=== PATIENT | female | born 1960 | race Caucasian/White ===

== ENCOUNTER 2019-11-23 00:23 | Outpatient (CLI) | payer OTHER, SELFPAY ==
[2019-11-23 15:54] LABS: SARS-CoV-2 RNA PCR Negative
== END 2019-11-23 00:24 | disposition home or self-care (01) ==
LOC: ANHCOVIDDT 00:23
PROVIDERS: PCP Family Medicine; Visit Provider Internal Medicine Gastroenterology
DX: Z01.818 Encounter for other preprocedural examination (principal); Z11.59 Encounter for screening for other viral diseases
CPT/HCPCS: 87635; C9803; U0003

== ENCOUNTER 2019-11-26 04:17 | Day surgery (SDC) | payer OTHER, SELFPAY ==
[2019-11-22 14:59] VITALS: BMI 29.1
[2019-11-26 07:08] VITALS: BP 133/72; PULSE 54; RESP 18; TEMP 36.4; O2SAT 100
[2019-11-26] MEDS: LACTATED RINGERS 1,000 ML 150 ML IV CONT (07:16)
--- NOTE | 2019-11-26 08:11 | WPDANESEPPF ---
Anes - Initial Pre Proc Eval Procedure: Operation Date: 11/26/19 08:30 Proposed Procedures p Esophagogastroduodenoscopy - Jak Gu MD Date/Time: 11/26/19 08:11 Surgeon: Jak Gu MD Pre Op Diagnosis: dysphagia, GERD Patient Data Age: 59 Gender: F Height: 5 ft 1 in Weight: 69.5 kg Last Vital Signs Temp 97.5 F L 11/26/19 07:08 Pulse 54 L 11/26/19 07:08 Resp 18 11/26/19 07:08 BP 133/72 11/26/19 07:08 Pulse Ox 100 11/26/19 07:08 Allergies Allergy/AdvReac Type Severity Reaction Status Date / Time dexlansoprazole Allergy Intermediate Rash Verified 11/26/19 07:12 [From Dexilant] codeine Allergy Unknown Nausea Verified 11/26/19 07:05 hydromorphone Allergy Unknown Hypothermia Verified 11/26/19 07:05 Home Medications Medication Instructions Recorded Confirmed Type albuterol sulfate 90 mcg/actuation 2 puff INHALATION Q4H PRN #8.5 gm 05/02/19 11/22/19 Rx aerosol inhaler fluticasone fur. 100 mcg-umeclid 1 inhalation INHALATION PRN PRN 05/02/19 11/22/19 History 62.5 mcg-vilant 25 mcg inhalat.powder tobramycin 0.3 % eye drops 1 drop EACH EYE Q4H PRN 05/02/19 11/22/19 History metoprolol succinate 50 mg 50 mg PO DAILY #90 tablet 06/05/19 11/22/19 Rx tablet,extended release 24 hr atorvastatin 10 mg tablet 10 mg PO DAILY 07/25/19 11/22/19 History diazepam 5 mg tablet 5 mg PO . q.h.s. tablet 07/25/19 11/22/19 History gabapentin enacarbil 300 mg 300 mg PO . q.h.s. tablet 07/25/19 11/22/19 History tablet,extended release hydroxychloroquine 200 mg tablet 200 mg PO BID tablet 07/25/19 11/22/19 History hydroxyzine HCl 25 mg tablet 25 mg PO . q.h.s. tablet 07/25/19 11/22/19 History melatonin 10 mg tablet 20 mg PO . q.h.s. tablet 07/25/19 11/22/19 History mycophenolate mofetil 500 mg tablet 1,000 mg PO .COMPLEX 07/25/19 11/22/19 History pantoprazole 40 mg tablet,delayed 40 mg PO QAM #90 tablet 07/25/19 11/22/19 Rx release prednisone 5 mg tablet 5 mg PO DAILY #90 tablet 07/25/19 11/22/19 Rx valacyclovir 1 gram tablet 1 mg PO PRN PRN 07/25/19 11/22/19 History levothyroxine 75 mcg tablet 75 mcg PO DAILY #90 tablet 11/13/19 11/22/19 Rx calcium carbonate [Calcium 600] 600 mg PO BID 11/22/19 11/22/19 History cyanocobalamin (vitamin B-12) 1,000 mcg PO DAILY 11/22/19 11/22/19 History [Vitamin B-12] venlafaxine 37.5 mg 37.5 mg PO DAILY #30 cap 11/24/19 Rx capsule,extended release 24 hr Patient hx anesthesia problems: none Family hx anesthesia problems: none PMFSH Past Medical History Medical History (Updated 11/26/19 @ 08:11 by Saad Rudd MD) Bronchitis Essential (primary) hypertension Hypothyroidism, unspecified Mixed hyperlipidemia Osteoarthritis involving multiple joints on both sides of body Systemic lupus erythematosus with organ system involvement Family History Family History (Updated 09/15/18 @ 11:06 by DOCTOR UNKNOWN) Mother Diabetes mellitus Family history of rheumatoid arthritis Patient's mother is in good health Father Hypertension Patient's father is in good health Family history of cardiac disorder Social History Social History Smoking status: Never smoker Alcohol intake: never Anes - Eval Final PreProcedure Day of Procedure 11/26/19 08:11 Patient weight: overweight Heart: regular rate and rhythm Lungs: clear to auscultation Airway: Mallampati scale class II Neurological: alert and oriented Last oral intake: >/= 8 hours ASA classification: III Emergent: no Anesthetic plan: proceed Anesthesia type and monitoring: general GIVS and standard monitoring Informed Consent: The patient's anesthetic plan and its attendant risks and benefits were discussed with the patient/family/POA. Questions were solicited and answers provided to the satisfaction of the patient/family/POA.
--- NOTE | 2019-11-26 08:23 | WPDGICN ---
Assessment and Plan Assessment and plan (1) GERD (gastroesophageal reflux disease): Code(s): K21.9 - Gastro-esophageal reflux disease without esophagitis Status: Acute Assessment and Plan: Recurrent symptoms of epigastric pain, dysphagia. Plan is for EGD to evaluate more thoroughly. Currently poorly responsive to her ongoing medications of pantoprazole. A trial of Dexilant 60 mg p.o. daily will be tried in the interim. Further recommendations may be given after endoscopy. (2) Epigastric abdominal pain: Code(s): R10.13 - Epigastric pain Status: Acute (3) Dysphagia: Code(s): R13.10 - Dysphagia, unspecified Status: Acute GI Consult Note Consult date/time: 11/26/19 08:23 HPI: Mendez Randolph is a 59 year old female Seen in evaluation at the request of Dr. Wilver Davis. Patient has a long history of acid reflux. . Patient previously on pantoprazole 40 mg p.o. b.i.d. with good response. Over last several months has increasing burning in belching. She feels a lump in her throat. Difficulty swallowing and epigastric pain. In the past has had endoscopy revealing distal esophageal web-like stricture requiring dilatation. Family history is noncontributory. Patient denies any bleeding or weight loss. Review of Systems Review of Systems: All systems reviewed & are unremarkable except as noted in HPI and below PMFSH Past Medical History Medical History Bronchitis Essential (primary) hypertension Hypothyroidism, unspecified Mixed hyperlipidemia Osteoarthritis involving multiple joints on both sides of body Systemic lupus erythematosus with organ system involvement Family History Family History Mother Diabetes mellitus Family history of rheumatoid arthritis Patient's mother is in good health Father Hypertension Patient's father is in good health Family history of cardiac disorder Social History Social History Smoking status: Never smoker Alcohol intake: never Meds Home Medications and Allergies Home Medications Medication Instructions Recorded Confirmed Type albuterol sulfate 90 mcg/actuation 2 puff INHALATION Q4H PRN #8.5 gm 05/02/19 11/22/19 Rx aerosol inhaler fluticasone fur. 100 mcg-umeclid 1 inhalation INHALATION PRN PRN 05/02/19 11/22/19 History 62.5 mcg-vilant 25 mcg inhalat.powder tobramycin 0.3 % eye drops 1 drop EACH EYE Q4H PRN 05/02/19 11/22/19 History metoprolol succinate 50 mg 50 mg PO DAILY #90 tablet 06/05/19 11/22/19 Rx tablet,extended release 24 hr atorvastatin 10 mg tablet 10 mg PO DAILY 07/25/19 11/22/19 History diazepam 5 mg tablet 5 mg PO . q.h.s. tablet 07/25/19 11/22/19 History gabapentin enacarbil 300 mg 300 mg PO . q.h.s. tablet 07/25/19 11/22/19 History tablet,extended release hydroxychloroquine 200 mg tablet 200 mg PO BID tablet 07/25/19 11/22/19 History hydroxyzine HCl 25 mg tablet 25 mg PO . q.h.s. tablet 07/25/19 11/22/19 History melatonin 10 mg tablet 20 mg PO . q.h.s. tablet 07/25/19 11/22/19 History mycophenolate mofetil 500 mg tablet 1,000 mg PO .COMPLEX 07/25/19 11/22/19 History pantoprazole 40 mg tablet,delayed 40 mg PO QAM #90 tablet 07/25/19 11/22/19 Rx release prednisone 5 mg tablet 5 mg PO DAILY #90 tablet 07/25/19 11/22/19 Rx valacyclovir 1 gram tablet 1 mg PO PRN PRN 07/25/19 11/22/19 History levothyroxine 75 mcg tablet 75 mcg PO DAILY #90 tablet 11/13/19 11/22/19 Rx calcium carbonate [Calcium 600] 600 mg PO BID 11/22/19 11/22/19 History cyanocobalamin (vitamin B-12) 1,000 mcg PO DAILY 11/22/19 11/22/19 History [Vitamin B-12] venlafaxine 37.5 mg 37.5 mg PO DAILY #30 cap 11/24/19 Rx capsule,extended release 24 hr Allergies Allergy/AdvReac Type Severity Reaction Status Date / Time dexlansoprazole Allergy Intermediate
[2019-11-26] MEDS: BENZOCAINE (*SP) 60 ML SPRAY CAN (HURRICAINE) 1 SPRAY MUCOUS MEM (08:33)
[2019-11-26 08:44] VITALS: BP 105/67; PULSE 55; RESP 17; O2SAT 99
[2019-11-26 08:54] VITALS: BP 107/67; PULSE 53; RESP 15; O2SAT 98
[2019-11-26 09:04] VITALS: BP 125/78; PULSE 56; RESP 14; O2SAT 100
== END 2019-11-26 09:26 | disposition home or self-care (01) ==
PROVIDERS: PCP Family Medicine; Visit Provider Internal Medicine Gastroenterology
PROC: 0DJ08ZZ Inspection of Upper Intestinal Tract, Via Natural or Artificial Opening Endoscopic (ICD-10-PCS; CPT 43235; principal; 2019-11-26 08:30)
DX: K21.9 Gastro-esophageal reflux disease without esophagitis (principal); R13.10 Dysphagia, unspecified; I10 Essential (primary) hypertension; E78.2 Mixed hyperlipidemia; M32.10 Systemic lupus erythematosus, organ or system involvement unspecified; M19.90 Unspecified osteoarthritis, unspecified site
CPT/HCPCS: 43450; 43235; J2704; J7120

== ENCOUNTER → 2020-03-27 16:30 | Outpatient (CLI) | payer OTHER, SELFPAY ==
--- NOTE | ~2020-03-27 | XR_ITS ---
EXAMINATION: XR chest 2V EXAM DATE: 03/27/2020 16:43 INDICATION: COVID 19. Cough. Shortness of breath. TECHNIQUE: Frontal and lateral projections of the chest obtained and reviewed. There is no prior tiffany dy for comparison. FINDINGS: Minimal left midlung zone opacity, could be atelectasis or acute infectious process. The l ungs are otherwise clear. There are no pleural effusions. The cardiomediastinal silhouette is withi n normal limits. There is no pneumothorax suspected. The bones and soft tissues are unremarkable. IMPRESSION: Minimal left midlung zone atelectasis or infection. Reviewed, dictated and finalized at location G.
== END ==
PROVIDERS: PCP Family Medicine; Visit Provider Family Medicine
DX: U07.1 COVID-19 (principal)
CPT/HCPCS: 71046

== ENCOUNTER → 2021-02-12 09:52 | Outpatient (CLI) | payer OTHER, SELFPAY ==
--- NOTE | ~2021-02-12 | CT_ITS ---
EXAMINATION:CT diagnostic chest wo con DATE: 02/12/2021 10:16 INDICATION: Shortness of breath. TECHNIQUE: Computed tomography (CT) of the chest was performed without intravenous contrast. Automate d exposure control and iterative reconstruction technique were employed. The dose-length product (DLP ) was 160.82 mGy-cm. COMPARISON: Chest CT 12/04/2018 FINDINGS: The lungs demonstrate mild atelectasis. There are two 3 mm nodules in right upper lobe, lik ton benign. A calcified right lung nodule and calcified right hilar and mediastinal lymph nodes are c onsistent with old granulomatous disease. No bronchiectasis or honeycombing. No pleural effusion. The heart size is normal. There are coronary artery calcifications. No pericardial effusion. There is a small sliding hiatal hernia. Calcifications in the spleen are consistent with old granulomatous disea se. There is a 2 mm stone in right kidney. There is moderate thoracic spondylosis. IMPRESSION: 1. No specific etiology for the patient's symptoms. 2. Small sliding hiatal hernia. Reviewed, dictated and finalized at location A.
== END ==
PROVIDERS: PCP Family Medicine
DX: R06.02 Shortness of breath (principal); K44.9 Diaphragmatic hernia without obstruction or gangrene
CPT/HCPCS: 71250

== ENCOUNTER 2021-05-19 08:24 | Outpatient (CLI) | payer OTHER, SELFPAY ==
--- NOTE | 2021-05-19 08:38 | ECHO_ITS ---
Patient Info Name: Mendez Randolph Age: 60 years : 1960 Gender: Female Ht: 62 in Wt: 150 lbs BSA: 1.74 m2 HR: 69 bpm BP: 130 / 82 mmHg Technical Quality: Good Exam Date: 05/19/2021 8:42 AM Exam Location: [facility] Patient Status: Outpatient Admit Date: 05/19/2021 Staff Ordering Physician: Wilver Davis MD Diesel Crane Operator: KIAN Attending Provider: Wilver Davis MD Referring Physician: Susan FAY; Exam Type: CA echo doppler color flow Study Info Indications I34.0 - Nonrheumatic mitral (valve) insufficiency Complete two-dimensional, color flow and Doppler transthoracic echocardiogram is performed. Summary 1. Complete two-dimensional, color flow and Doppler transthoracic echocardiogram is performed. 2. Left ventricular chamber dimension is normal. 3. Left ventricular systolic function is normal, estimated at 60-65%. 4. The left ventricular diastolic function is grade I diastolic dysfunction. 5. E/e' 15 is elevated. 6. Global longitudinal strain is normal at -19.4%. 7. Left atrial chamber dimension is mildly enlarged. 8. There is mild to moderate mitral valve regurgitation. 9. No pulmonary hypertension, estimated pulmonary arterial systolic pressure is 12 mmHg. Left Ventricle E/e' 15 is elevated. Global longitudinal strain is normal at -19.4%. Left ventricular chamber dimension is normal. Left ventricular systolic function is normal, estimated at 60-65%. The left ventricular diastolic function is grade I diastolic dysfunction. Right Ventricle Right ventricular chamber dimension is normal. Right ventricular systolic function is normal. Left Atria Left atrial chamber dimension is mildly enlarged. Right Atria Right atrial chamber dimension is normal. Aortic Valve The aortic valve is trileaflet. There is no aortic valve stenosis. There is no aortic valve regurgitation. Pulmonic Valve There is no pulmonic regurgitation. Mitral Valve There is no mitral valve stenosis. There is mild to moderate mitral valve regurgitation. Tricuspid Valve There is no tricuspid valve regurgitation. No pulmonary hypertension, estimated pulmonary arterial systolic pressure is 12 mmHg. Pericardium/Pleural There is no pericardial effusion. Inferior Vena Cava Normal inferior vena cava with >50% collapse upon inspiration consistent with normal right atrial pressure, 5 mmHg. Aorta The aortic root size at the sinus of Valsalva is normal. Left Ventricular Outflow Tract Name Value Normal LVOT 2D LVOT Diameter 1.8 cm LVOT Doppler LVOT Peak Gradient 5 mmHg LVOT Mean Gradient 2 mmHg LVOT VTI 24 cm LVOT VTI/AV VTI Ratio 0.7 LVOT Stroke Volume 62 ml LVOT CO 10.9 l/min LVOT CI 6.3 l/min/m2 Mitral Valve Name Value Normal
== END 2021-05-19 08:25 | disposition home or self-care (01) ==
LOC: ANHCARD 08:25
PROVIDERS: PCP Family Medicine; Visit Provider Family Medicine
DX: I34.0 Nonrheumatic mitral (valve) insufficiency (principal); R06.02 Shortness of breath
CPT/HCPCS: 93306

== ENCOUNTER 2022-08-22 16:35 | Emergency (ER) | payer BC, SELFPAY ==
--- NOTE | ~2022-08-22 | XR_ITS ---
EXAMINATION: XR abdomen/kub 1V DATE: 08/23/2022 00:07 INDICATION: Right flank pain. TECHNIQUE: A supine view of the abdomen on 2 radiographs was obtained. COMPARISON: CT abdomen and pelvis 08/22/2022 FINDINGS: There are no dilated loops of bowel. There is a large volume of stool in the colon. There a re phleboliths in the pelvis. There are 5 mm and 4 mm calcifications in right kidney. IMPRESSION: 1. Calcifications in right kidney, which may be parenchymal. Reviewed, dictated and finalized at location D. ARY SERIALS ASSISTANT
--- NOTE | ~2022-08-22 | CT_ITS ---
EXAMINATION: CT abdomen pelvis wo con DATE: 08/23/2022 00:16 INDICATION: Right flank pain. TECHNIQUE: Computed tomography (CT) of the abdomen and pelvis was performed without intravenous contr ast. Automated exposure control and iterative reconstruction technique were employed. The dose-length product was 255.15 mGy-cm. COMPARISON: CT abdomen and pelvis 10/30/2012 FINDINGS: The visualized portions of the lung bases demonstrate mild atelectasis. No pleural effusion . The heart size is normal. There are coronary artery calcifications. No pericardial effusion. There is a small sliding hiatal hernia. The liver and gallbladder are normal. Calcifications in the spleen are consistent with old granulomatous disease. The pancreas, adrenal glands, and left kidney are norm al. There is mild atrophy of right kidney. There are 4 mm and 5 mm calcifications in right kidney. Th ere is a large volume of stool in the colon. The appendix is normal. There are no dilated loops of kala wel. There are no pathologically enlarged lymph nodes. There is no free intraperitoneal fluid. There is moderate thoracic and lumbar spondylosis. IMPRESSION: 1. Calcifications in right kidney that may be parenchymal calcifications. 2. Small sliding hiatal hernia. Reviewed, dictated and finalized at location D. TY COMMISSIONER
[2022-08-22 16:58] VITALS: BP 124/67; PULSE 58; RESP 17; TEMP 36.5; O2SAT 100
[2022-08-22 17:33] LABS: Basophils Percent Auto 0.2 % (0.2-1.2); Eosinophils Absolute Auto 0.1 K/mm3 (0-0.3); Eosinophils Percent Auto 2.4 % (0-4.4); Hematocrit 38.2 % (37.0-47.0); Immature Granulocyte Absolute 0.01 K/mm3 (0.00-0.031); Immature Granulocyte Percent A 0.2 % (0-0.5); Lymphocytes Absolute Auto 2.33 K/mm3 (0.9-3.2); Lymphocytes Percent Auto 43.1 % (18.3-44.2); Mean Corpuscular HGB Conc 31.4 g/dl (32-36); Mean Corpuscular Hemoglobin 28.6 pg (26-34); Mean Corpuscular Volume 91.2 fl (80-100); Mean Platelet Volume 9.6 fl (7.4-10.4); Monocytes Absolute Auto 0.5 K/mm3 (0.1-0.6); Monocytes Percent Auto 9.4 % (2.6-8.5); Neutrophils Absolute Auto 2.4 K/mm3 (1.3-6.7); Neutrophils Percent Auto 44.7 % (45.5-73.1); Platelet Count Result 221 k/mm3 (150-375); Red Blood Count 4.19 M/mm3 (4.2-5.4); Red Cell Distribution Width 13.8 % (11.5-14.5); White Blood Count 5.4 K/mm3 (4.5-10.0)
[2022-08-22 17:44] LABS: Alanine Aminotransferase 25 U/L (6-35); Albumin Level 4.2 g/dL (3.5-5.1); Alkaline Phosphatase 88 U/L (38-126); Anion Gap 3 mmol/L (8-16); Aspartate Amino Transferase 31 U/L (14-36); Bilirubin,Total 0.4 mg/dL (0.2-1.3); Blood Urea Nitrogen 19 mg/dL (7-17); Carbon Dioxide 29 mmol/L (22-30); Chloride 102 mmol/L (98-107); Estimated CRCL calculation 47 ml/min; Estimated Glomerular Filt Rate 56; Glucose 95 mg/dL (65-110); Lipase 234 U/L (23-300); Potassium 4.7 mmol/L (3.4-5.0); Sodium 134 mmol/L (137-145)
[2022-08-22 18:50] VITALS: BP 130/72; PULSE 51; RESP 20; TEMP 37.1; O2SAT 99
--- NOTE | 2022-08-22 22:39 | ED.BACK ---
HPI - Back Pain/Injury General Chief Complaint: Back Pain/Injury <Haley Spence MD - Last Filed: 08/23/22 22:42> Stated Complaint: flank/back pain <Haley Spence MD - Last Filed: 08/23/22 22:42> Time Seen by Provider: 08/22/22 22:34 <Haley Spence MD - Last Filed: 08/23/22 22:42> Source: patient, RN notes reviewed and old records reviewed <Haley Spence MD - Last Filed: 08/23/22 22:42> Mode of arrival: ambulatory <Haley Spence MD - Last Filed: 08/23/22 22:42> Limitations: no limitations <Haley Spence MD - Last Filed: 08/23/22 22:42> History of Present Illness HPI Narrative: THis is a 61 year old female with history of kidney stones who presents for evaluation of right flank pain. She developed constant right flank pain on Tuesday. Her pain is nonradiating and she denies associated nausea, vomiting, fever, hematuria or dysuria. She reports this pain feels similar to prior episode of kidney stones. She rates her pain 8-10. She has been taking tylenol and tramadol for her pain. Her last dose of tramadol was 8 hours ago. <Haley Spence MD - Last Filed: 08/23/22 22:42> Related Data Home Medications: Home Medications Medication Instructions Recorded Confirmed tobramycin 0.3 % eye drops (Tobrex) 1 drop LEFT EYE Q4H PRN allergies 05/02/19 05/19/22 atorvastatin 10 mg tablet 10 mg PO DAILY 07/25/19 05/19/22 diazepam 5 mg tablet 5 mg PO . q.h.s. 07/25/19 05/19/22 hydroxychloroquine 200 mg tablet 200 mg PO BID 07/25/19 05/19/22 hydroxyzine HCl 25 mg tablet 25 mg PO . q.h.s. 07/25/19 05/19/22 melatonin 10 mg tablet 20 mg PO . q.h.s. 07/25/19 05/19/22 mycophenolate mofetil 500 mg tablet 1,000 mg PO .COMPLEX 07/25/19 05/19/22 calcium carbonate 600 mg calcium 600 mg PO BID 11/22/19 05/19/22 (1,500 mg) tablet (Calcium) cyanocobalamin (vitamin B-12) 1,000 mcg PO DAILY 11/22/19 05/19/22 1,000 mcg tablet (Vitamin B-12) celecoxib 200 mg capsule (Celebrex) 200 mg PO DAILY 05/19/22 05/19/22 estradiol 0.01% (0.1 mg/gram) 1 g vaginal 2XW 05/19/22 05/19/22 vaginal cream gabapentin enacarbil 300 mg 300 mg PO . t.i.d. 05/19/22 05/19/22 tablet,extended release (Horizant ER) <Haley Spence MD - Last Filed: 08/23/22 22:42> Allergies/Adverse Reactions: Allergies Allergy/AdvReac Type Severity Reaction Status Date / Time codeine Allergy Unknown Nausea Verified 11/26/19 07:05 hydromorphone Allergy Unknown Hypothermia Verified 11/26/19 07:05 <Haley Spence MD - Last Filed: 08/23/22 22:42> Review of Systems Constitutional: Constitutional: Denies weakness <Haley Spence MD - Last Filed: 08/23/22 22:42> Cardiovascular: Cardiovascular: Denies syncope, Denies rapid heart rate, Denies irregular heart rhythm, Denies leg edema and Denies dyspnea <Haley Spence MD - Last Filed: 08/23/22 22:42> Respiratory: Respiratory: Denies chest congestion, Denies hemoptysis, Denies excessive phlegm production and Denies dyspnea <Haley Spence MD - Last Filed: 08/23/22 22:42> Gastrointestinal: Gastrointestinal: Denies abdominal pain, Denies hematochezia, Denies diarrhea and Denies vomiting <Haley Spence MD - Last Filed: 08/23/22 22:42> Genitourinary: Genitourinary: Denies hematuria, Denies dysuria and Reports flank pain <Haley Spence MD - Last Filed: 08/23/22 22:42> Musculoskeletal: Musculoskeletal: Denies joint swelling, Denies loss of height and Denies muscle weakness <Haley Spence MD - Last Filed: 08/23/22 22:42> Neurologic: Denies syncope, Denies focal weakness and Denies weakness <Haley Spence MD - Last Filed: 08/23/22 22:42> [facility] Past Medical History Medical History: Medical History Abdominal pain Abscessed tooth Acute non-recurrent maxillary sinusitis BMI 29.0-29.9,adult Bronchitis Chronic depression Chronic seasonal allergic rhinitis COVID-19 (~
[2022-08-22] MEDS: MORPHINE SULFATE (*CRX) 4 MG/ML INJ 6 MG IV PUSH (23:49)
[2022-08-22] MEDS: ONDANSETRON INJ 4 MG/2 ML VIAL IV PUSH (23:49)
[2022-08-22] MEDS: SODIUM CHLORIDE 0.9% IV 1,000 ML 999 ML IV CONT (23:49)
[2022-08-22 23:52] VITALS: O2SAT 98
[2022-08-22 23:54] VITALS: BP 151/80; O2SAT 96
[2022-08-23] VITALS (8 sets, daily range): BP systolic 138; BP diastolic 73; PULSE 52; RESP 17; O2SAT 97–100
[2022-08-23 00:15] LABS: Appearance Urine Cloudy (Clear); Bacteria Urine None Seen /hpf; Bilirubin Urine Negative (Negative); Blood Urine Negative (Negative); Color Urine Yellow (Yellow); Glucose Urine UA Negative (Negative); Ketones Urine Negative (Negative); Leukocyte Esterase Ur Negative LEU/UL (Negative); Nitrate Urine Negative (Negative); Non Pathogenic Casts 0-2; Protein Urine Negative (Negative); RBC Urine 0-2 /hpf (0-2); Specific Grav Ur 1.013 (1.001-1.035); Squamous Epithelial Cell Urine None seen /hpf (Few); Urobilinogen Urine 0.2 mg/dL (<2.0); WBC Urine 0-5 /hpf; pH Urine 5.5 (5.0-9.0)
[2022-08-23 00:26] LABS: Add Urine Microscopic? YES
== END 2022-08-23 01:50 | disposition home or self-care (01) ==
PROVIDERS: Emergency Medicine; Emergency Provider General Practice; PCP Family Medicine
DX: R10.9 Unspecified abdominal pain (principal); F32.A Depression, unspecified; Z86.16 Personal history of COVID-19; I10 Essential (primary) hypertension; M79.7 Fibromyalgia; K21.9 Gastro-esophageal reflux disease without esophagitis; E03.9 Hypothyroidism, unspecified; M19.90 Unspecified osteoarthritis, unspecified site
CPT/HCPCS: 36415; 74018; 74176; 80053; 81001; 81003; 83690; 85025; 96361; 96374; 96375; 99284; J2270; J2405; J7030

== ENCOUNTER 2023-06-20 15:06 | Emergency (ER) | payer BC, SELFPAY ==
--- NOTE | 2023-06-20 15:10 | ED.URI ---
HPI - URI/Sore Throat General Chief Complaint: Upper Respiratory Infection Stated Complaint: headache,sore throat,cough,body aches Time Seen by Provider: 06/20/23 16:28 Source: patient and RN notes reviewed Mode of arrival: ambulatory Limitations: no limitations History of Present Illness HPI Narrative: 62-year-old female presents concern for nasal congestion, headache, sore throat, cough, fever, chills that started today. She reports she has taken Tylenol. MD elicited complaint: cough and sore throat Related Data Home Medications Medication Instructions Recorded Confirmed atorvastatin 10 mg tablet 10 mg PO DAILY 07/25/19 06/20/23 hydroxychloroquine 200 mg tablet 200 mg PO BID 07/25/19 06/20/23 hydroxyzine HCl 25 mg tablet 25 mg PO . q.h.s. 07/25/19 06/20/23 melatonin 10 mg tablet 20 mg PO . q.h.s. 07/25/19 06/20/23 mycophenolate mofetil 500 mg tablet 1,000 mg PO .COMPLEX 07/25/19 06/20/23 calcium carbonate 600 mg calcium 600 mg PO BID 11/22/19 06/20/23 (1,500 mg) tablet (Calcium) cyanocobalamin (vitamin B-12) 1,000 mcg PO DAILY 11/22/19 06/20/23 1,000 mcg tablet (Vitamin B-12) estradiol 0.01% (0.1 mg/gram) 1 g vaginal 2XW 05/19/22 06/20/23 vaginal cream gabapentin enacarbil 300 mg 300 mg PO . t.i.d. 05/19/22 06/20/23 tablet,extended release (Horizant ER) ferrous sulfate 325 mg (65 mg 325 mg PO DAILY 11/17/22 06/20/23 iron) tablet,delayed release Allergies Allergy/AdvReac Type Severity Reaction Status Date / Time codeine Allergy Unknown Nausea Verified 06/20/23 15:52 hydromorphone Allergy Unknown Hypothermia Verified 06/20/23 15:52 Review of Systems Review of Systems: CONSTITUTIONAL: Reports malaise, chills, or fever. EYES: Denies visual changes, redness, or discharge. ENT: Reports rhinorrhea, congestion, sinus pain, and sore throat. CARDIOVASCULAR: Denies chest pain, palpitations, or edema. RESPIRATORY: Reports cough. Denies dyspnea. GASTROINTESTINAL: Denies abdominal pain, nausea, vomiting, diarrhea SKIN: Denies rash or itching. MUSCULOSKELETAL: Reports myalgia. NEUROLOGIC: Reports headache. All systems reviewed & are unremarkable except as noted in HPI and below [facility] Past Medical History Medical History (Updated 06/20/23 @ 16:32 by Jenifer Lund NP) Abdominal pain Abscessed tooth Acute non-recurrent maxillary sinusitis BMI 29.0-29.9,adult BMI 30.0-30.9,adult Bronchitis Chronic depression Chronic seasonal allergic rhinitis Contact dermatitis due to plants, except food COVID-19 (~03/25/20) Dysphagia Dyspnea on exertion Epigastric abdominal pain Essential (primary) hypertension Family history of hemochromatosis daughter diagnosed with hemochromatosis. total iron 99 with ferritin 34 on 05/18/2021 Fatigue Fibromyalgia GERD (gastroesophageal reflux disease) Hypothyroidism, unspecified TSH suppressed at 0.07 and free T4 at 1.3 on 05/18/2021 . TSH therapeutic at 1.55 on 08/14/21 . TSH 1.16 on 09/17/2021. TSH slightly elevated at 4.87 with free T4 1.2 on 11/09/2022. Migraine with aura and without status migrainosus Migraine without aura and without status migrainosus, not intractable Mitral valve regurgitation Mild to moderate mitral valve regurgitation on echocardiogram. Prophylactic antibiotics no longer recommended before dental procedures for mild problems Mixed hyperlipidemia Total cholesterol 253 with HDL 68, triglycerides 96, LDL 165 with ratio 3.7 on 03/19/2022. Cholesterol 158, triglycerides 152, HDL 60, LDL 75 on 11/09/2022. Obesity (BMI 30.0-34.9) Osteoarthritis involving multiple joints on both sides of body Overweight (BMI 25.0-29.9) Pain, dental Palpitation Plantar fasciitis Seasonal allergic rhinitis Systemic lupus erythematosus with organ system involvement BUN 27 with creatinine 0.99 with CRP 0.6 and sedimentation rate of 2 on 03/19/2022. UTI (urinary tract infection) Vitamin D deficiency, unspecified (09/17/21) 29 . level low at 26 on 03/19/2022. Family Hi
[2023-06-20 15:58] VITALS: BP 130/67; PULSE 76; RESP 16; TEMP 37.8; O2SAT 100
== END 2023-06-20 16:37 | disposition home or self-care (01) ==
PROVIDERS: Emergency Provider Nurse Practitioner; PCP Family Medicine
DX: U07.1 COVID-19 (principal); I10 Essential (primary) hypertension; K21.9 Gastro-esophageal reflux disease without esophagitis; E03.9 Hypothyroidism, unspecified; E78.2 Mixed hyperlipidemia; E66.9 Obesity, unspecified; Z68.28 Body mass index [BMI] 28.0-28.9, adult; M15.9 Polyosteoarthritis, unspecified; M32.9 Systemic lupus erythematosus, unspecified
CPT/HCPCS: 87426; 87804; 99213; C9803; G0463

== ENCOUNTER 2023-11-17 08:33 | Outpatient (CLI) | payer BC, SELFPAY ==
--- NOTE | ~2023-11-17 | NM_ITS ---
EXAM: NM gastric emptying study DATE: 11/17/2023 13:10 INDICATION: Gastroesophageal reflux without esophagitis. TECHNIQUE: A gastric emptying study was performed using the methodology of Jarvis FOX, et al. J Nucl Med 2007; 48:568-572. The patient was given a meal consisting of 2 scrambled eggs labeled with 0.972 mCi Tc-99m sulfur colloid, 2 slices of toast, two packages of jam, and approximately 120 mL of water . Simultaneous anterior and posterior 1-min images of the abdomen were obtained with the patient supi ne at multiple time points over a total period of 4 hours. The geometric mean of anterior and posteri or views was determined, and the percentage retention was calculated for each time point. COMPARISON: CT abdomen and pelvis 08/22/2022 FINDINGS: Gastric retention of the radiotracer-labeled meal was 73%, 61%, and 18% at the 1-hour, 2-h our, and 4-hour time points, respectively. With this technique, apparent rapid gastric emptying is gamez ggested by <30% gastric retention at 1 hour. Delayed gastric emptying is defined by gastric retention of >90% at 1 hour, >60% retention at 2 hours, or >10% retention at 4 hours. IMPRESSION: 1. Delayed gastric emptying. Reviewed, dictated and finalized at location A.
== END 2023-11-17 08:34 | disposition home or self-care (01) ==
PROVIDERS: PCP Family Medicine; Visit Provider Nurse Practitioner Family
DX: R68.81 Early satiety (principal); Q39.4 Esophageal web; K21.9 Gastro-esophageal reflux disease without esophagitis; K30 Functional dyspepsia
CPT/HCPCS: 78264; A9541

== ENCOUNTER 2023-11-24 07:44 | Outpatient (CLI) | payer BC, SELFPAY ==
--- NOTE | ~2023-11-24 | XR_ITS ---
EXAMINATION: XR barium swallow DATE: 11/24/2023 08:50 INDICATION: Early satiety. TECHNIQUE: The patient drank thick barium, gas-producing crystals, and thin barium. Fluoroscopy of th e hypopharynx and esophagus was performed. Fluoroscopy exposure time was 0.3 minutes. The total numbe r of images was 264. The dose-area product was 0.9 Gy-cm^2. COMPARISON: CT abdomen and pelvis 08/22/2022 FINDINGS: There is no mass or stricture of the esophagus. Esophageal motility is normal. There is a s mall sliding hiatal hernia. There was no gastroesophageal reflux with provocative maneuvers. IMPRESSION: 1. Small sliding hiatal hernia. Reviewed, dictated and finalized at location A.
== END 2023-11-24 07:45 | disposition home or self-care (01) ==
PROVIDERS: PCP Family Medicine; Visit Provider Nurse Practitioner Family
DX: Q39.4 Esophageal web (principal); K21.9 Gastro-esophageal reflux disease without esophagitis; R68.81 Early satiety; K44.9 Diaphragmatic hernia without obstruction or gangrene
CPT/HCPCS: 74220

== ENCOUNTER 2023-12-15 01:13 | Day surgery (SDC) | payer BC, SELFPAY ==
[2023-11-28 14:40] VITALS: BMI 28.4
[2023-12-15 12:15] VITALS: BP 120/64; PULSE 56; RESP 16; TEMP 36.2; O2SAT 100; BMI 27.6
[2023-12-15] MEDS: LACTATED RINGERS 1,000 ML 150 ML IV CONT (12:30)
--- NOTE | 2023-12-15 12:39 | WPDANESEPPF ---
Anes - Initial Pre Proc Eval Procedure: Operation Date: 12/15/23 13:30 Proposed Procedures p Esophagogastroduodenoscopy & Colonoscopy - Lazaro Barker MD Date/Time: 12/15/23 12:39 Surgeon: Lazaro Barker MD Pre Op Diagnosis: Family history malignant neoplasm of digestive org Patient Data Age: 63 Gender: F Height: 1.55 m Weight: 66.5 kg Last Vital Signs Temp 97.1 F L 12/15/23 12:15 Pulse 56 L 12/15/23 12:15 Resp 16 12/15/23 12:15 BP 120/64 12/15/23 12:15 Pulse Ox 100 12/15/23 12:15 O2 Del Method Room Air 12/15/23 12:15 Allergies Allergy/AdvReac Type Severity Reaction Status Date / Time hydromorphone Allergy Unknown Hypothermia Verified 12/15/23 12:09 codeine AdvReac Unknown Nausea Verified 12/15/23 12:09 Home Medications Medication Instructions Recorded Confirmed Type atorvastatin 10 mg tablet 10 mg PO DAILY 07/25/19 12/15/23 History hydroxychloroquine 200 mg tablet 200 mg PO DAILY 07/25/19 12/15/23 History hydroxyzine HCl 25 mg tablet 25 mg PO . q.h.s. 07/25/19 12/15/23 History melatonin 10 mg tablet 20 mg PO . q.h.s. 07/25/19 12/15/23 History mycophenolate mofetil 500 mg tablet 1,000 mg PO .COMPLEX 07/25/19 12/15/23 History prednisone 5 mg tablet 5 mg PO DAILY #90 tabs 07/25/19 12/15/23 Rx calcium carbonate (Calcium 600) 600 mg PO BID 11/22/19 12/15/23 History cyanocobalamin (vitamin B-12) 1,000 mcg PO DAILY 11/22/19 12/15/23 History 1,000 mcg tablet (Vitamin B-12) cyclobenzaprine 10 mg tablet 10 mg PO TID PRN muscle spasm #60 05/19/22 12/15/23 Rx tabs gabapentin enacarbil 300 mg 300 mg PO . t.i.d. 05/19/22 12/15/23 History tablet,extended release (Horizant ER) ferrous sulfate 325 mg (65 mg 325 mg PO DAILY 11/17/22 12/15/23 History iron) tablet,delayed release tramadol 50 mg tablet 50 mg PO Q6H PRN pain #60 tabs 11/17/22 12/15/23 Rx valacyclovir 1 gram tablet 1 mg PO PRN PRN break out #30 tabs 12/29/22 12/15/23 Rx (Valtrex) triamcinolone acetonide 0.5 % 1 applic topical BID #30 grams 02/01/23 12/15/23 Rx topical cream levothyroxine 100 mcg tablet 100 mcg PO DAILY #90 tabs 06/26/23 12/15/23 Rx albuterol sulfate 90 mcg/actuation 2 puff inhalation Q4H PRN 07/18/23 12/15/23 Rx aerosol inhaler (ProAir HFA) shortness of breath or wheezing #8.5 grams metoprolol succinate 50 mg 50 mg PO DAILY #90 tabs 09/19/23 12/15/23 Rx tablet,extended release 24 hr diazepam 5 mg tablet 5 mg PO . q.h.s. #90 tabs 10/12/23 12/15/23 Rx lansoprazole 30 mg capsule,delayed 30 mg PO BID #60 caps 10/24/23 12/15/23 Rx release metoclopramide HCl 10 mg tablet 5 mg PO .ac nausea and vomiting 11/17/23 12/15/23 Rx #90 tabs Patient hx anesthesia problems: none Family hx anesthesia problems: none Results Review: All pre-operative results and documents have been reviewed as part of the pre-operative evaluation. [facility] Past Medical History Medical History Abdominal pain Abscessed tooth Acute non-recurrent maxillary sinusitis BMI 29.0-29.9,adult BMI 30.0-30.9,adult Bronchitis Chronic depression Chronic seasonal allergic rhinitis Contact dermatitis due to plants, except food COVID-19 (~03/25/20) COVID-19 (~06/20/23) 2nd episode testing positive and ER on 06/20/2023 Dysphagia Dyspnea on exertion Epigastric abdominal pain Essential (primary) hypertension Family history of hemochromatosis daughter diagnosed with hemochromatosis. total iron 99 with ferritin 34 on 05/18/2021. Iron 57 with 19% saturation and ferritin 37 on 06/03/2023. Fatigue Fibromyalgia Magnesium normal at 2.1 on 06/03/2023. Gastroparesis delayed gastric emptying on emptying study on 11/17/2023. Barium swallow 11/24/2023 normal with small hiatal hernia. GERD (gastroesophageal reflux disease) Hypothyroidism, unspecified TSH suppressed at 0.07 and free T4 at 1.3 on 05/18/2021 . TSH therapeutic at 1.55 on 08/14/21 .
--- NOTE | 2023-12-15 13:27 | PM.HPGS ---
History of Present Illness History of Present Illness Consent: Risks, benefits, and alternatives have been discussed and questions answered. Patient agrees to proceed with procedure. Chief complaint: Family history malignant neoplasm of digestive org Narrative: Mendez Randolph is a 63 year old female with gerd on lansoprazole but still has to sleep with HOB elevated, also early satiety- recent diagnosis of gastroparesis started on reglan but still can not tell the difference, father had colon cancer with last colonoscopy 2016 Review of Systems Review of Systems: All systems reviewed & are unremarkable except as noted in HPI and below PMFSH Past Medical History Medical History (Updated 12/15/23 @ 13:28 by Lazaro Barker MD) Abdominal pain Abscessed tooth Acute non-recurrent maxillary sinusitis BMI 29.0-29.9,adult BMI 30.0-30.9,adult Bronchitis Chronic depression Chronic seasonal allergic rhinitis Contact dermatitis due to plants, except food COVID-19 (~03/25/20) COVID-19 (~06/20/23) 2nd episode testing positive and ER on 06/20/2023 Dysphagia Dyspnea on exertion Epigastric abdominal pain Essential (primary) hypertension Family history of colon cancer in father Family history of hemochromatosis daughter diagnosed with hemochromatosis. total iron 99 with ferritin 34 on 05/18/2021. Iron 57 with 19% saturation and ferritin 37 on 06/03/2023. Fatigue Fibromyalgia Magnesium normal at 2.1 on 06/03/2023. Gastroparesis delayed gastric emptying on emptying study on 11/17/2023. Barium swallow 11/24/2023 normal with small hiatal hernia. GERD (gastroesophageal reflux disease) Hypothyroidism, unspecified TSH suppressed at 0.07 and free T4 at 1.3 on 05/18/2021 . TSH therapeutic at 1.55 on 08/14/21 . TSH 1.16 on 09/17/2021. TSH slightly elevated at 4.87 with free T4 1.2 on 11/09/2022. To city no at 5.86 with free T4 at 1.1 on 06/03/2023. Migraine with aura and without status migrainosus Migraine without aura and without status migrainosus, not intractable Mitral valve regurgitation Mild to moderate mitral valve regurgitation on echocardiogram. Prophylactic antibiotics no longer recommended before dental procedures for mild problems Mixed hyperlipidemia Total cholesterol 253 with HDL 68, triglycerides 96, LDL 165 with ratio 3.7 on 03/19/2022. Cholesterol 158, triglycerides 152, HDL 60, LDL 75 on 11/09/2022. Cholesterol 241, triglycerides 132, HDL 63, LDL 152 with ratio 3.8 on 06/03/2023. Obesity (BMI 30.0-34.9) Osteoarthritis involving multiple joints on both sides of body Overweight (BMI 25.0-29.9) Pain, dental Palpitation Plantar fasciitis Seasonal allergic rhinitis Systemic lupus erythematosus with organ system involvement BUN 27 with creatinine 0.99 with CRP 0.6 and sedimentation rate of 2 on 03/19/2022. UTI (urinary tract infection) Vitamin D deficiency, unspecified (09/17/21) 29 . level low at 26 on 03/19/2022. Family History Family History Mother Diabetes mellitus Family history of rheumatoid arthritis Patient's mother is in good health Father Hypertension Patient's father is in good health Family history of cardiac disorder Social History Social History Smoking status: Never smoker Alcohol intake: never Substance use: never Substance use type: does not use Lack of Transportation: No Lack of Food: Never True Current Housing: I Have Housing Concerned About Future Housing: No Difficulty Paying Gas/Electric Bills: No Difficulty Paying for Meds: No Currently Unemployed: No Education: Associate Degree Difficulty w/ Childcare or Family Care: No Living arrangements: other Additional living arrangements comments: with sp Meds Home Medications and Allergies Home Medications Medication Instructions Recorded Confirmed Type atorvastatin 10 mg t
--- NOTE | 2023-12-15 13:57 | SUR.OPER ---
EGD START TIME 1341, END TIME 1344. COLONOSCOPY START TIME 1349, END TIME 1357.
[2023-12-15 14:02] VITALS: BP 100/56; PULSE 58; RESP 26; O2SAT 99
[2023-12-15 14:12] VITALS: BP 116/70; PULSE 54; RESP 15; O2SAT 100
[2023-12-15 14:22] VITALS: BP 125/72; PULSE 55; RESP 16; O2SAT 100
== END 2023-12-15 14:32 | disposition home or self-care (01) ==
PROVIDERS: PCP Family Medicine; Referring Provider Nurse Practitioner Family; Visit Provider Internal Medicine Gastroenterology
PROC: 0DJ08ZZ Inspection of Upper Intestinal Tract, Via Natural or Artificial Opening Endoscopic (ICD-10-PCS; CPT 43235; principal; 2023-12-15 13:30)
DX: Z12.11 Encounter for screening for malignant neoplasm of colon (principal); K64.8 Other hemorrhoids; Z80.0 Family history of malignant neoplasm of digestive organs; K21.9 Gastro-esophageal reflux disease without esophagitis; K31.84 Gastroparesis; I10 Essential (primary) hypertension; M79.7 Fibromyalgia; F32.A Depression, unspecified; M32.10 Systemic lupus erythematosus, organ or system involvement unspecified; E55.9 Vitamin D deficiency, unspecified; I34.0 Nonrheumatic mitral (valve) insufficiency; Z79.51 Long term (current) use of inhaled steroids
CPT/HCPCS: 43239; 45378; 88305; J2001; J2704; J7120